=== PATIENT | female | born 1995 | race Caucasian/White ===

== ENCOUNTER 2016-08-12 20:06 | Emergency (ER) | payer SELFPAY ==
[~2016-08-12] VITALS: Ht 149.9 cm; Wt 65.5 kg
[2016-08-12 20:45] VITALS: Ht 149.9 cm; Wt 65.5 kg
== END 2016-08-12 20:45 | disposition left against medical advice (07) ==
LOC: E/R 20:06 → FTE 20:45
DX: Z53.21 Procedure and treatment not carried out due to patient leaving prior to being seen by health care provider (principal)

== ENCOUNTER 2017-02-09 15:18 | Outpatient (CLI) | payer MEDICAID ==
[~2017-02-09] VITALS: Ht 147.3 cm; Wt 71.7 kg
[2017-02-09 15:26] VITALS: BP 115/65; PULSE 111; RESP 17
[2017-02-09 15:27] VITALS: Ht 147.3 cm; Wt 71.7 kg
[2017-02-09] MEDS ORDERED: FER325 PO (15:29)
[2017-02-09] MEDS ORDERED: PRENAT PO (15:29)
[2017-02-09 16:12] LABS: BASOPHILS % 0.3 % (0.0-2.0); EOSINOPHILS # 0.1 10^3/ul (0.0-0.5); EOSINOPHILS % 1.2 % (0.0-7.0); HEMATOCRIT 31.2 % (37.0-47.0); HEMOGLOBIN 10.5 g/dl (12.0-16.0); LYMPHOCYTES # 1.8 10^3/ul (0.8-2.9); LYMPHOCYTES % 15.9 % (18.0-55.0); MEAN CORPUSCULAR HEMOGLOBIN 29.7 pg (29.0-33.0); MEAN CORPUSCULAR HGB CONC 33.7 g/dl (32.0-37.0); MEAN CORPUSCULAR VOLUME 88.4 fl (72.0-104.0); MEAN PLATELET VOLUME 8.6 fl (7.4-10.4); MONOCYTE # 0.7 10^3/ul (0.3-0.9); MONOCYTES % 6.5 % (0.0-13.0); NEUTROPHILS % 74.7 % (30.0-74.0); PLATELET COUNT 329 10^3/UL (140-415); RED BLOOD COUNT 3.53 10^6/ul (4.20-5.40)
[2017-02-09 16:50] LABS: ADD UMIC YES; UR ASCORBIC ACID 20 mg/dL (NEGATIVE); UR BACTERIA FEW /HPF (NONE SEEN); UR BILIRUBIN (Dip) NEGATIVE (NEGATIVE); UR BLOOD (Dip) NEGATIVE (NEGATIVE); UR CLARITY CLOUDY (CLEAR); UR COLOR YELLOW (YELLOW); UR GLUCOSE (Dip) 1+ mg/dL (NEGATIVE); UR KETONES (Dip) TRACE mg/dL (NEGATIVE); UR LEUKOCYTE ESTERASE (Dip) NEGATIVE Leu/ul (NEGATIVE); UR NITRITE (Dip) NEGATIVE (NEGATIVE); UR RBC 0 /HPF (0-5); UR SPECIFIC GRAVITY (Dip) 1.009 (1.003-1.030); UR SQUAMOUS EPITHELIAL CELL MODERATE /HPF (FEW); UR TOTAL PROTEIN (Dip) NEGATIVE (NEGATIVE); UR UROBILINOGEN (Dip) NEGATIVE (NEGATIVE)
--- NOTE | 2017-02-09 17:29 | RADRPT ---
PROCEDURE: US OB biophysical profile. Ultrasound cervix CLINICAL INDICATION: decreased movements, PTL TECHNIQUE: Multiple sonographic images of the pelvis were obtained. In addition, endovaginal imag es of the cervix were obtained. The images were reviewed on a PACS workstation. COMPARISON: No prior studies are available for comparison. FINDINGS: There is a single viable intrauterine gestation. Cardiac activity is present with 130 beats per min [place]. There is a vertex presentation. The cervix is closed and measures 3.6 cm in length. The placenta is anterior. There is no evidence of placental abruption. There is a normal amount of amniotic fluid with an KRISHAN = 16.6 cm. Biophysical profile: movement 2/2 tone 2/2. breathing 2/2 KRISHAN 2/2 Total 01/13 RPTAT: AA . IMPRESSION: Normal biophysical profile. The cervix is closed and measures 3.6 cm in length. . .Greg Johnson MD, MD Date Time Electronically viewed and signed by .Greg Johnson MD, on 02/09/2017 17:28 .S/
--- NOTE | 2017-02-09 17:31 | QN ---
Documentation Comment ipu 30 weeks co of abd pain not improved vss exam wnl us wnl a/p iup 30 weeks false labor dc [place] EMILEE CAM MD Feb 09, 2017 17:31
--- NOTE | 2017-02-09 17:50 | TRIAGE ---
OB Triage Datetime Report Generated by CPN: 02/09/2017 17:50 Datetime: 02/09/2017 15:59 Labor Evaluation Frequency: 0 Monitor Mode: External Pattern: Normal: <= 5 Contractions in 10 Minutes Resting Tone [place]: Relaxed Heart Rate FHR Baseline Rate: 140 Monitor Mode: External US FHR Baseline Changes: No Baseline Change Variability: Moderate 6-25 bpm Accelerations: 15X15 Decelerations: None Category: Category I Pain Assessment Pain Scale: 0 Pain Presence: None/Denies Pain Type: N/A Pain Assessment Comments: PT DENIES FEELING ANY MORE PAIN SINCE BEING HERE Datetime: 02/09/2017 15:31 EGA: 30.2 Datetime: 02/09/2017 15:26 Pain Assessment Pain Scale: 5 Pain Presence: Intermittent Pain Type: Cramping Pain Location: Abdomen Pain Relief Measures: Comfort Measures Datetime: 02/09/2017 15:25 Assessment Type: Triage Maternal Assessment Level of Consciousness: Fully Conscious DTR's/Clonus: DTRs 2+; No Clonus Headache: Denies Blurred Vision: No Respiratory Effort: Unlabored; Regular Rhythm Breath Sounds, Left: Clear and Equal Breath Sounds, Right: Clear and Equal Nausea/Vomiting: Denies RUQ Epigastric Pain: Denies Lower Extremities Edema: None Degree: None Upper Extremities Edema: None Degree: None Facial Edema: None Fall Risk Assessment History of Falling: (0) No Secondary Diagnosis: (0) No Ambulatory Aid: (0) Bedrest/Nurse Assist IV Therapy: (0) No Gait: (0) Normal/Bedrest/Immobile Mental Status: (0) Oriented to Own Ability Fall Score: 0 Fall Risk Score Definition: No Risk: No action required Datetime: 02/09/2017 15:09 Time of Arrival: 02/09/2017 15:09 Arrived By: Ambulatory Arrived From: Home Chief Complaint: PT PRESENTS TO TRIAGE STATING SHE HAS HAD ABDOMINAL PAIN THAT COMES AND GOES SINC E 1430 Movement: Present Contractions: Irregular Rupture of Membranes: Denies Vaginal Bleeding: None Vaginal Discharge: Denies Recent Sexual Intercouse: Denies Abdominal Trauma: Not Applicable Patient Complaints: Cramping Time Provider Notified: 02/09/2017 15:50 Provider Notified: CHINYERE Initial Plan: EFM/CBC, UA, CVL, BPP
== END 2017-02-09 17:50 | disposition home or self-care (01) ==
LOC: OBT 15:18 → L-D 15:18 → OBT 17:50
PROVIDERS: ATTEND Obstetrics & Gynecology
DX: O47.00 False labor before 37 completed weeks of gestation, unspecified trimester (principal); Z3A.30 30 weeks gestation of pregnancy
CPT/HCPCS: 36415; 76817; 76818; 81001; 85025; Z7500; G0463

== ENCOUNTER 2017-04-01 15:43 | Outpatient (CLI) | payer MEDICAID ==
[~2017-04-01] VITALS: Ht 147.3 cm; Wt 77.7 kg
[~2017-04-01 15:43] MED LIST: FER325 PO; PRENAT PO
[2017-04-01 16:07] VITALS: Ht 147.3 cm; Wt 77.7 kg
[2017-04-01 16:08] VITALS: BP_SYST 114; PULSE 87; RESP 18
--- NOTE | 2017-04-01 16:59 | RADRPT ---
PROCEDURE: US biophysical profile. CLINICAL INDICATION: Contractions. TECHNIQUE: Multiple sonographic images of the uterus were obtained. The images were revi ewed on a PACS workstation. COMPARISON: No prior studies are available for comparison. FINDINGS: There is a single live intrauterine gestation. heart rate is 131 beats per minute. The position is cephalic. The placenta is anterior grade III with no abruption or previa. The KRISHAN is 10.5 cm. (Normal = 5-20 cm.) Breathing Movement: 2 Gross Body Movement: 2 Tone: 2 Qualitative Amniotic Fluid Volume: 2 TOTAL: 8 IMPRESSION: 1. The biophysical score is 8/8. RPTAT: QQ .Doron Ryan MD, Date Time Electronically viewed and signed by .Doron Ryan MD, MD on 04/01/2017 16:59 .R/
--- NOTE | 2017-04-01 17:56 | PN ---
Triage Information Date/Time April 01, 2017 Reason for visit: SROM (Complaining of passage of gush of fluid this a.m. with continuous leaking afterwards) Weeks of Gestation 38 weeks /Para 2 para 0 AB 1 Diabetes: none Hypertention: none Objective Vital Signs Date Time Temp Pulse Resp B/P Pulse Ox O2 Delivery O2 Flow Rate FiO2 04/01/17 16:08 98.0 87 18 114/ 97 Room Air Heart Rate: 140's Heart Rate Comments Reactive Contractions: None Exam Long and 1 cm Results/Medications Results 24 hrs Laboratory Tests Test 04/01/17 16:10 Membranes Rupture NEGATIVE Imaging Results The KRISHAN is 10.5 cm. (Normal = 5-20 cm.) The biophysical score is 8/8. Disposition: Discharge Assessment/Plan We will follow as outpatient RADHA HANSEN MD Apr 01, 2017 17:56
--- NOTE | 2017-04-01 18:08 | TRIAGE ---
OB Triage Datetime Report Generated by CPN: 04/01/2017 18:08 Datetime: 04/01/2017 17:00 Stage of : OB Triage Maternal Assessment Level of Consciousness: Fully Conscious Labor Evaluation Frequency: 0 Monitor Mode: External Resting Tone [place]: Relaxed Heart Rate FHR Baseline Rate: 135 Monitor Mode: External US Variability: Moderate 6-25 bpm Accelerations: 15X15 Decelerations: None Category: Category I Pain Assessment Pain Scale: 0 Pain Goal: 3 Membrane Status: Intact Vaginal Bleeding: None Datetime: 04/01/2017 16:15 Vaginal Exam Dilatation (cms): 1.0 Effacement (%): 40 Station: -2 Exam By: WILLIAM Vaginal Bleeding: None Pool: Negative Nitrazine: Negative Cervix, Consistency: Firm Cervix, Position: Posterior Datetime: 04/01/2017 16:05 Assessment Type: Triage Maternal Assessment Level of Consciousness: Fully Conscious DTR's/Clonus: DTRs 2+; No Clonus Headache: Denies Blurred Vision: No Respiratory Effort: Unlabored; Regular Rhythm Breath Sounds, Left: Clear and Equal Breath Sounds, Right: Clear and Equal Nausea/Vomiting: Denies RUQ Epigastric Pain: Denies Lower Extremities Edema: None Degree: None Upper Extremities Edema: None Degree: None Facial Edema: None Fall Risk Assessment History of Falling: (0) No Secondary Diagnosis: (0) No Ambulatory Aid: (0) Bedrest/Nurse Assist IV Therapy: (0) No Gait: (0) Normal/Bedrest/Immobile Mental Status: (0) Oriented to Own Ability Fall Score: 0 Fall Risk Score Definition: No Risk: No action required Datetime: 04/01/2017 16:03 Time of Arrival: 04/01/2017 15:35 EGA: 37.4 Arrived By: Ambulatory Arrived From: Home Chief Complaint: PT HERE C/O POSSIBLE SROM Movement: Present Contractions: Denies/Absent Rupture of Membranes: Unsure Vaginal Bleeding: None Vaginal Discharge: Denies Recent Sexual Intercouse: Denies Abdominal Trauma: Not Applicable Patient Complaints: None Time Provider Notified: 04/01/2017 17:00 Provider Notified: CHINYERE Initial Plan: efm/sve/rom plus/ster. spec/BPP Datetime: 04/01/2017 16:01 Monitor Mode: External Monitor Mode: External US Datetime: 02/09/2017 16:55 Labor Evaluation Frequency: 0 Monitor Mode: External Pattern: Normal: <= 5 Contractions in 10 Minutes Resting Tone [place]: Relaxed Heart Rate FHR Baseline Rate: 135 Monitor Mode: External US FHR Baseline Changes: No Baseline Change Variability: Moderate 6-25 bpm Accelerations: 15X15 Decelerations: None Category: Category I Pain Assessment Pain Scale: 0 Pain Presence: None/Denies Pain Type: N/A Datetime: 02/09/2017 15:31 EGA: 30.2 Datetime: 02/09/2017 15:25 Fall Score: 0 Fall Risk Score Definition: No Risk: No action required
== END 2017-04-01 18:00 | disposition home or self-care (01) ==
LOC: OBT 15:43 → L-D 15:44 → OBT 18:00
PROVIDERS: ATTEND Obstetrics & Gynecology
DX: O42.92 Full-term premature rupture of membranes, unspecified as to length of time between rupture and onset of labor (principal); Z3A.38 38 weeks gestation of pregnancy
CPT/HCPCS: 76818; 84112; Z7500; G0463

== ENCOUNTER 2017-04-09 22:11 | Inpatient (IN) | payer MEDICAID ==
[~2017-04-09] VITALS: Ht 147.3 cm; Wt 78.5 kg
[2017-04-09 22:30] VITALS: Ht 147.3 cm; Wt 78.5 kg
[2017-04-09 22:31] VITALS: BP 125/66; PULSE 93; RESP 16
[2017-04-09] MEDS ORDERED: LACTATED RINGER'S 1,000 ML IV PRN (23:45)
[2017-04-10] MEDS ORDERED: LIDOCAINE 1% (MPF) 30 ML INJ INJ PRN
[2017-04-10] MEDS ORDERED: IBUPROFEN 600 MG TAB PO PRN
[2017-04-10] MEDS ORDERED: OXYTOCIN 30 UNITS/LR 500 ML IV SCH ×2
[2017-04-10] MEDS ORDERED: BUTORPHANOL 2 MG INJ IV PRN
--- NOTE | 2017-04-10 00:12 | HP ---
Date/Time of Note Date/Time of Note DATE: 04/10/17 TIME: 00:05 OB - History Hx of Present Free Text/Dictation 21 y.o A1(SAB) at 38w5d ,c/o leaking fluid at 1950.with uc's EFM uc's q2min spec exam positive pooling with pos ROM plus VE 1-2/70%/-2 GBS neg admitted for expectant management Estimated Due Date: Apr 18, 2017 : 2 Para: 0 Spontaneous : 1 Therapeutic : 0 Care: Good Care Ultrasounds: Normal mid trimester US Medical Complications: None Past Family/Social History * Past Medical, Surgical, Family and Obstetric Histories reviewed from chart. Blood Type: A+ Rubella: not immune RPR/VDRL: Negative GBS Status: Negative HBsAG: Negative OB Admission Exam Vital Signs Vital Signs Vital Signs Date Time Temp Pulse Resp B/P Pulse Ox O2 Delivery O2 Flow Rate FiO2 04/09/17 22:31 98.4 93 16 125/66 Room Air Physical Exam HEENT: WNL Heart: Rhythm Normal Lungs: Clear, Equal Abdomen: WNL Extremities: Normal Reflexes: Normal Cervical Dilatation: other (1-2) Effacement: 75% Station: -2 Membranes: Ruptured Amniotic Fluid: Clear Heart Rate: 130's Accelerations: Accelerations Present Decelerations: No Decelerations Varibility: Moderate Contractions on Admission: < 5 Minutes Apart Intensity: Mild OB Assessment/Plan Reason for admission: rupture of membranes Other Assessment: IUP 38w5d in early labor Plan: Expectant Management SHU HOWARD MD Apr 10, 2017 00:11
--- NOTE | 2017-04-10 01:24 | TRIAGE ---
OB Triage Datetime Report Generated by CPN: 04/10/2017 01:24 Datetime: 04/10/2017 01:06 Vaginal Exam Dilatation (cms): 3.0 Effacement (%): 80 Station: -2 Exam By: vaishnavi Datetime: 04/10/2017 00:25 Time of Arrival: 04/10/2017 00:25 EGA: 38.5 Arrived By: Stretcher Arrived From: TRIAGE Datetime: 04/10/2017 00:21 Labor Evaluation Frequency: 1-4 Monitor Mode: External Duration (sec)2399: 40-120 Quality: Mild Pattern: Normal: <= 5 Contractions in 10 Minutes Resting Tone [place]: Relaxed Contraction Comments: UTERINE IRRITABILITY NOTED Heart Rate FHR Baseline Rate: 155 Monitor Mode: External US Variability: Moderate 6-25 bpm Decelerations: None Category: Category II Datetime: 04/10/2017 00:00 Labor Evaluation Frequency: 1.5-3 Monitor Mode: External Duration (sec)2399: 40-80 Quality: Moderate Pattern: Normal: <= 5 Contractions in 10 Minutes Resting Tone [place]: Relaxed Heart Rate FHR Baseline Rate: 160 Monitor Mode: External US Variability: Moderate 6-25 bpm Accelerations: Prolonged Decelerations: None Category: Category II Comments: PERIOD OF MARKED VARIABILITY NOTED Datetime: 04/09/2017 23:00 Labor Evaluation Frequency: 1.5-5 Monitor Mode: External Duration (sec)2399: 40-60 Quality: Moderate Pattern: Normal: <= 5 Contractions in 10 Minutes Resting Tone [place]: Relaxed Contraction Comments: UTERINE IRRITABILITY NOTED Heart Rate FHR Baseline Rate: 125 Monitor Mode: External US Variability: Minimal - Undetectable to <=5 bpm Accelerations: 15X15 Decelerations: None Category: Category II Comments: PERIOD OF MINIMAL AND MARKED VARIABILITY NOTED Datetime: 04/09/2017 22:47 Vaginal Exam Dilatation (cms): 1.5 Effacement (%): 70 Station: -2 Exam By: SERAFIN I. Pool: Positive Nitrazine: Positive Presentation 'A': Cephalic Datetime: 04/09/2017 22:45 Stage of : Labor Datetime: 04/09/2017 22:33 Time of Arrival: 04/09/2017 22:08 EGA: 38.5 Arrived By: Wheelchair Arrived From: Home Chief Complaint: CONTRACTIONS, LEAKING Movement: Present Contractions: Irregular Time Contractions Began: 04/09/2017 20:17 Rupture of Membranes: Unsure Vaginal Bleeding: None Vaginal Discharge: Present Recent Sexual Intercouse: Denies Abdominal Trauma: Not Applicable Patient Complaints: Contractions Initial Plan: FHT, ROM+, SVE Datetime: 04/09/2017 22:25 Stage of : OB Triage Assessment Type: Triage Maternal Assessment Level of Consciousness: Fully Conscious DTR's/Clonus: DTRs 2+; No Clonus Headache: Denies Blurred Vision: No Respiratory Effort: Unlabored; Regular Rhythm; Equal Expansion Breath Sounds, Left: Clear and Equal Breath Sounds, Right: Clear and Equal Nausea/Vomiting: Denies RUQ Epigastric Pain: Denies Upper Extremities Edema: None Degree: None Facial Edema: None Datetime: 04/09/2017 22:21 Comments: MONITORS PLACED. AUDIBLE HEART TONES. Datetime: 04/01/2017 16:05 Fall Risk Assessment Fall Score: 0 Fall Risk Score Definition: No Risk: No action required Datetime: 04/01/2017 16:03 EGA: 37.4 Datetime: 02/09/2017 15:31 EGA: 30.2 Datetime: 02/09/2017 15:25 Fall Risk Assessment Fall Score: 0 Fall Risk Score Definition: No Risk: No action required
[2017-04-10] MEDS: LACTATED RINGER'S 1,000 ML IV SCH ×4 (01:52→14:24)
[2017-04-10] MEDS ORDERED: FENTAnyl 2MCG/ML-ROPIV 0.2% 100 ML ONE (03:48)
[2017-04-10] MEDS ORDERED: DIPHENHYDRAMINE 50 MG INJ IV PRN (06:00)
[2017-04-10] MEDS ORDERED: ONDANSETRON 4 MG INJ IV PRN (06:00)
[2017-04-10] MEDS ORDERED: NALOXONE (0.4 MG/ML) INJ IV PRN (06:00)
[2017-04-10] MEDS ORDERED: MINERAL OIL LIGHT 10 ML VIAL TOP ONE (07:00)
[2017-04-10] MEDS ORDERED: AMPICILLIN 2 GM/NS (PMX) 100 ML IVPB ONE (09:00)
[2017-04-10] MEDS: FENTAnyl 2MCG/ML-ROPIV 0.2% 100 ML BAG EPI SCH ×2 (10:40→17:06)
--- NOTE | 2017-04-10 14:00 | QN ---
Documentation Comment cervix is 100% 5-6 cm at -1 station because of decreased frequency of contractions will start on Pitocin RADHA HANSEN MD Apr 10, 2017 14:00
--- NOTE | 2017-04-10 14:00 | QN ---
Documentation Comment cervix is 100% 5-6 cm at -1 station because of decreased frequency of contractions will start on Pitocin RADHA HNASEN MD Apr 10, 2017 14:00
[2017-04-10] MEDS: AMPICILLIN 1 GM/NS (PMX) 50 ML IVPB SCH ×2 (14:16→17:07)
--- NOTE | 2017-04-10 18:53 | LDN ---
Date/Time of Note Date/Time of Note DATE: 04/10/17 TIME: 18:50 Delivery Summary Normal spontaneous vaginal delivery of a viable over intact perineum Weeks of Gestation 39+ Placenta Delivered: Spontaneously, Intact & Complete Meconium: Light Episiotomy: No Perineal laceration: 2 Laceration repair: Second-degree perineal laceration was repaired in layers using 2-0 Vicryl and 2-0 chromic in a normal fashion Anesthesia type: Epidural Estimated blood loss: 300 Sponge & Needle done & correct: Yes All needle counts correct: Yes Any foreign bodies felt in the: No Problems: Delivery Information Sex Sex: male Apgars 1 Minute: 8 5 Minute: 9 Suctioning Nose & mouth suctioned at [place]: Yes Delee suction performed: No Umbilical Cord Umbilical cord with: 3 Vessels Cord presentations: no nuchal cord Cord Blood was obtained: Yes Mother & Baby Disposition Disposition Mom & Baby to Maternity; Good: Yes (Mother and baby were recovered in good condition) Mom transferred to: Other (Maternity) Baby to NICU: No RADHA HANSEN MD Apr 10, 2017 18:52
[2017-04-10 21:30] VITALS: BP 122/77; PULSE 99; RESP 20
[2017-04-10] MEDS ORDERED: LACTATED RINGER'S 1,000 ML IV* SCH (21:55)
[2017-04-10 22:00] VITALS: BP 111/62; PULSE 89; RESP 18
[2017-04-10] MEDS ORDERED: BENZOCAINE 20% 56 ML SPRAY TOP PRN (22:00)
[2017-04-10] MEDS ORDERED: WITCH HAZEL/GLYCERIN PAD PR PRN (22:00)
[2017-04-10] MEDS ORDERED: DIBUCAINE 1% 30 GM OINT PR PRN (22:00)
[2017-04-10] MEDS ORDERED: LANOLIN 7 GM TUBE TOP PRN (22:00)
[2017-04-10] MEDS ORDERED: METHYLERGONOVINE 0.2 MG INJ IM PRN ×2 (22:00)
[2017-04-10] MEDS ORDERED: HYDROCODONE/APAP (5/325) TAB PO PRN ×2 (22:00)
[2017-04-10] MEDS ORDERED: ZOLPIDEM 5 MG TAB PO PRN (22:00)
[2017-04-10] MEDS ORDERED: CARBOPROST 250 MCG INJ IM PRN ×2 (22:00)
[2017-04-10] MEDS ORDERED: MISOPROSTOL 200 MCG TAB PR PRN ×2 (22:00)
[2017-04-10] MEDS ORDERED: OXYTOCIN 30 UNITS/LR 500 ML IV PRN ×2 (22:00)
[2017-04-11] MEDS: CEPHALEXIN 500 MG CAP PO SCH ×4 (00:01→17:40)
[2017-04-11] MEDS: IBUPROFEN 600 MG TAB PO SCH ×4 (00:02→17:40)
[2017-04-11 03:45] VITALS: BP 110/55; PULSE 85; RESP 18
[2017-04-11 07:45] VITALS: BP 106/55; PULSE 83; RESP 19
[2017-04-11] MEDS: MAGNESIUM HYDROXIDE 30ML CUP PO SCH ×2 (10:56→20:58)
[2017-04-11] MEDS: SENNA/DOCUSATE NA (8.6MG/50MG) TAB PO SCH ×2 (10:56→20:58)
--- NOTE | 2017-04-11 13:09 | DS ---
Date/Time of Note Date/Time of Note Home next day if remains stable DATE: 04/11/17 TIME: 13:08 Obstetrical Discharge Record Final Diagnosis Final Diagnosis: Term delivered Other Final Diagnosis Status post vaginal delivery Vaginal Delivery Obstetrical Delivery: Spontaneous, Laceration, Repaired Complications Augmentation: Yes Condition on Discharge Physical Assessment Last Vitals: See nurse's notes Voiding: Yes Bowel Movement: Yes Breast: Soft, non-tender, Filling Fundus: Firm Abdomen and Incision: Abdomen is soft bowel sounds present Fundus is firm at bellybutton Episiotomy: Not applicable Perineum is healing and is clean Calf Tenderness: No Patient Condition: Good RADHA HANSEN MD Apr 11, 2017 13:09
--- NOTE | 2017-04-11 14:27 | PD.PPDC ---
[employer] Discharge Instruction Provider Information Physician Information 21-year-old female had vaginal delivery Diagnosis Final Diagnosis: Status post vaginal delivery Condition Patient Condition: Good Diet Diet: Resume Regular Diet Activity/Restrictions Activity: Normal Activity May Shower Restrictions: Nothing in the Vagina Return to Work or School: May 25, 2017 Follow-up Follow-up with Physician: 4, Week/Weeks (In clinic) Return to clinic for OB Instructions: Breast Tenderness Depression Comment: Pelvic rest for 6 weeks RADHA HANSEN MD Apr 11, 2017 14:27
[2017-04-11] MEDS ORDERED: IBUP-1542 PO (14:28)
[2017-04-11 16:00] VITALS: BP 105/60; PULSE 65; RESP 19
[2017-04-11 20:05] VITALS: BP 104/57; PULSE 79; RESP 18
[2017-04-12] MEDS: CEPHALEXIN 500 MG CAP PO SCH ×3 (00:27→12:14)
[2017-04-12] MEDS: IBUPROFEN 600 MG TAB PO SCH ×3 (00:27→12:14)
[2017-04-12 03:40] VITALS: BP 103/58; PULSE 78; RESP 18
[2017-04-12 08:50] VITALS: BP 114/76; PULSE 75; RESP 18
[2017-04-12] MEDS ORDERED: VARICELLA VACCINE LIVE/PF 1,350 UNIT/0.5 ML ML SC* ONE (09:00)
[2017-04-12] MEDS: MAGNESIUM HYDROXIDE 30ML CUP PO SCH (09:00)
[2017-04-12] MEDS: SENNA/DOCUSATE NA (8.6MG/50MG) TAB PO SCH (09:00)
[2017-04-12] MEDS ORDERED: MEASLES,MUMPS,RUBELLA VACCINE INJ SC* ONE (09:00)
[2017-04-12] MEDS ORDERED: DIPHTH/TET/ACEL PERTUSS (ADULT) 0.5 ML VIAL IM* ONE (09:00)
== END 2017-04-12 14:35 | disposition home or self-care (01) | DRG 775 ==
LOC: OBT 22:11 → L-D 22:12 → OBT 04-10 → L-D 04-10 → PP1 04-10 21:22
PROVIDERS: ADMIT Obstetrics & Gynecology; ATTEND Obstetrics & Gynecology
PROC: 10E0XZZ Delivery of Products of Conception, External Approach (ICD-10-PCS; principal; 2017-04-10)
DX: O70.1 Second degree perineal laceration during delivery (principal); Z37.0 Single live birth; Z3A.39 39 weeks gestation of pregnancy
CPT/HCPCS: 62319; 84112; 85025; 85610; 85730; 86592; 86900; 86901; 87340; 90715; 90716; 99464; G0463; J0290; J1200; J2590; J3010; J7120